=== PATIENT | male | born 1965 | race Caucasian/White ===

== ENCOUNTER 2018-11-01 08:15 | Day surgery (SDC) | payer BC, SELFPAY ==
[2018-11-01 08:29] VITALS: BP 152/99; PULSE 77; RESP 16; TEMP 36.1; O2SAT 96
[2018-11-01] MEDS: Lactated Ringers 1,000 ML 30 ML IV (08:47)
--- NOTE | 2018-11-01 10:32 | W.COLOREPORT ---
Date of service: 11/01/18 Time of Service: 10:32 Colonoscopy Report Date of procedure: 11/01/18 Pre-op diagnosis general: screening colonoscopy Post-op diagnosis procedure note: same Procedure: Colonoscopy Surgeon: Freddie Angelo III Anesthesia proc note operative: MAC Pathology: none sent Complications: None Disposition: PACU Indications: Colorectal screening Prep: GoLYTELY Findings: Patient had sporadic AVMs noted throughout the colon Procedure Description: After informed consent was obtained the patient was taken to the procedure room and placed in a left decubitous position. Monitors were applied and a time out was done. The patients name, date of , procedure, allergies to medications and metal in their body was reviewed. The patient was then sedated. Once sedated and comfortable a rectal exam was done. External exam was normal. Internal exam revealed a normal sphincter tone and no palpable masses. The prostate normal. The scope was then introduced and retrofelexed. 3 internal hemorrhoids were identified. The scope was then advanced to the cecum without difficulty. The TI and appendiceal orifice were identified. The prep was adequate. The scope was then slowly retracted over 6 minutes back into the rectum. No Polyps were removed. The scope was removed and the patient was woken up and taken back to Same day surgery in stable condition. The patient tolerated the procedure well and there were no immediate complications. Follow up: The patient should follow up in 10 years unless they develop changes in bowel habits or other new gastrointestinal complaints.
--- NOTE | 2018-11-01 10:34 | W.PM.DSUDISC ---
Discharge Plan Disposition Patient Disposition: HOME Condition: Stable Discharge Details Reason For Visit: Screening colonoscopy Attending Provider: Freddie Angelo III Primary Care Provider: Alex Richardson Home Meds and New Rx's Prescriptions: Continued bisacodyl [Dulcolax (bisacodyl)] 5 mg tablet,delayed release (DR/EC) 5 mg PO ONCE Qty: 4 RF: 0 polyethylene glycol 3350 17 gram/dose powder 255 g PO ONCE Qty: 255 RF: 0 amlodipine 5 MG tablet 5 mg PO DAILY Qty: 90 RF: 4 lisinopril 10 MG tablet 10 mg PO DAILY Qty: 90 RF: 4 Discharge Instructions Activity:: Activity as Tolerated Diet:: As Tolerated Discharge Orders Discharge Orders: Discharge Order (Routine); Ordered 11/01/18 Ordered By: Freddie Angelo III DS: Diagnosis Discharge Diagnosis (1) Colonoscopy planned: Status: Acute
[2018-11-01 11:05] VITALS: BP 122/79; PULSE 77; RESP 16; TEMP 35.5; O2SAT 96
== END 2018-11-01 11:30 | disposition home or self-care (01) ==
PROVIDERS: PCP Emergency Medicine; Visit Provider Surgery
PROC: 0DJD8ZZ Inspection of Lower Intestinal Tract, Via Natural or Artificial Opening Endoscopic (ICD-10-PCS; CPT 45378; principal; 2018-11-01 09:30)
DX: Z12.11 Encounter for screening for malignant neoplasm of colon (principal); K64.0 First degree hemorrhoids; I10 Essential (primary) hypertension
CPT/HCPCS: 45378

== ENCOUNTER 2020-05-19 11:25 | Emergency (ER) | payer BC, SELFPAY ==
[2020-05-19] VITALS (53 sets, daily range): BP systolic 107–152; BP diastolic 40–93; PULSE 65–100; RESP 12–26; TEMP 36.9; O2SAT 92–100
--- NOTE | 2020-05-19 11:30 | RT.EKG_ITS ---
APPROVED REPORT Exam: Resting ECG Patient Location: E HR:76 bpm ECG Measurements Heart Rate 76 AXIS NE [id number] P [id number] QRSd 93 QRS -19 QT 403 T -1 QTc 454 Conclusion P waves visible. May be artifact vs A flutter. No acute ST elevation or depression.
[2020-05-19] MEDS: Normal Saline 1,000 ML 1000 ML IV (11:53)
--- NOTE | 2020-05-19 12:01 | ED.GENADUL_ITS ---
Discharge Plan Disposition Patient Disposition: HOME Condition: Stable Discharge Details Chief Complaint: Allergic Clinical Impression: Syncope, Anaphylactic reaction to bee sting Primary Care Provider: Alex Richardson ED Provider: Jono Brian Home Meds and New Rx's Prescriptions: New prednisone 20 mg tablet 60 mg PO DAILY 5 Days Qty: 15 RF: 0 epinephrine [EpiPen 2-Brandin] 0.3 mg/0.3 mL auto-injector 0.3 mg IM ONCE Qty: 1 RF: 0 Continued lisinopril 10 mg tablet 10 mg PO DAILY Qty: 90 RF: 4 amlodipine 5 mg tablet 5 mg PO DAILY Qty: 90 RF: 4 Discharge Instructions Instructions: Insect Bite or Sting (ED), Syncope (ED) Additional Instructions: Prednisone as directed. [id number] Pepcid and Benadryl as directed for the next 5 days. I am prescribing you an EpiPen and we discussed how and when to use the EpiPen. Please watch for new or worsening symptoms and return to the ER for any concerns. I would like you to recheck your primary care provider later today or tomorrow for prompt outpatient reevaluation. Discharge Data Discharge Date/Time-TO BE ENTERED AT DEPARTURE: 05/19/20 15:45 Medical Decision Making 54-year-old gentleman with a history of hypertension, presents to the ER for what was described as anaphylactic reaction to a bee sting and a subsequent syncopal episode. Episode was witnessed, he did not fall to the ground or hurt himself. He has never had an adverse reaction to a bee sting in the past. He presents to the ER now having already received epinephrine, Benadryl, Solu- Medrol, IV fluids. I will add on IV Pepcid. Patient appears slightly anxious but otherwise in no acute distress. He does present with mild hypotension however per EMS this is significantly better than what they found upon initial presentation at his house. He currently has a localized bee sting but no other obvious signs or symptoms of anaphylactic reaction. His airway is patent, there is no swelling of his lips, tongue, throat. He is able to speak in full sentences and manage his secretions without difficulty. Lungs are clear to auscultation. There is no evidence of hives or other rash throughout his body. Given he had a syncopal episode, I do believe initiating a cardiac work-up is reasonable especially considering he needs to be watched in the ER for about 4 hours after receiving the epinephrine. Patient was observed in the ER for a total of over 4 hours. He remained on the cafeteria monitor. Blood pressure trended upward, 135/76. Heart rate of 83. He responded nicely to the medications that were provided. He was awake, alert, no longer anxious. Ambulated to the restroom multiple times without assistance and was able to tolerate p.o. intake. White blood cell count of 7.07 hemoglobin 13.7 hematocrit 39.5 platelet count 231. Sodium 142 potassium 3.0. Patient had his potassium replenished both p.o. and IV. Creatinine 1.19 with a GFR greater than 60. Glucose 125. Mag of 1.7. Initial troponin is less than 0.05. Serial reexaminations of the patient were performed during his observation here in the ER. Repeat EKG obtained at 1455 reviewed and interpreted with Dr. Ott. Please see her official report. Sinus rhythm, ventricular rate of 82. No STEMI. Repeat troponin less than 0.05. Patient, son, and I had a long conversation regarding his presentation today, his laboratory values here in the Er, and his multiple evaluations. He is currently asymptomatic. I will provide a prescription burst dose steroids and he will use [id number] Benadryl and Pepcid for the next 5 days. I will also prescribe an EpiPen, we discussed in length how and when to use an EpiPen and the importance of seeking medical attention if he has a reaction severe enough that requires an EpiPen. Patient has no additional questions or concerns and is comfortable with discharge at this time. He was encouraged to return to the ER for new or worsening symptoms, otherwise contact his primary care provider for outpatient reevaluation. Medical Records Medical records reviewed: Yes I reviewed the patient's medical records. Lab Data Lab results reviewed: Yes I reviewed the patient's lab results. Lab results narrative: Laboratory Tests Range/Units 05/19/20 05/19/20 05/19/20 11:50 11:50 14:55 WBC (4.4-10.8) 10^3/uL 7.07 RBC (4.36-5.78) 10^6/uL 4.49 Hgb (13.5-17.5) g/dL 13.7 Hct (40.0-50.0) % 39.5 L MCV (80-95) fL 88.0 MCH (27.0-33.0) pg 30.5 MCHC (32.0-36.0) % 34.7 RDW (11.8-14.1) % 12.7 Plt Count (130-400) 10^3/uL 231 MPV (8.0-11.0) fL 9.9 Immature Gran % 0.4 Neutrophils % 62.5 Lymphocytes % 32.7 Monocytes % 3.5 Eosinophils % 0.6 Basophils % 0.3 Absolute Neutrophils (1.2-6.7) 10^3/uL 4.42 Absolute Lymphocytes (1.2-3.4) 10^3/uL 2.31 Absolute Monocytes (0.1-0.8) 10^3/uL 0.25 Absolute Eosinophils (0.0-0.7) 10^3/uL 0.04 Absolute Basophils (0.0-0.2) 10^3/uL 0.02 Sodium (136-145) mmol/L 142 Potassium (3.5-5.1) mmol/L 3.0 L Chloride (98-107) mmol/L 107 Carbon Dioxide (21.0-32.0) mmol/L 24.7 Anion Gap (3-11) mmol/L 10.3 BUN (7-18) mg/dL 21 H Creatinine (0.70-1.30) mg/dL 1.19 Estimated GFR/1.73 m2 (mL/min/1.73m2) >= 60.00 Glucose (74-106) mg/dL 125 H Calcium (8.5-10.1) mg/dL 8.0 L Magnesium (1.8-2.4) mg/dL 1.7 L Total Bilirubin (0.2-1.0) mg/dL 0.4 AST (15-37) U/L 21 ALT (16-63) U/L 22 Alkaline Phosphatase (46-116) U/L 62 Troponin I (<0.06) ng/mL < 0.05 < 0.05 Total Protein (6.4-8.2) g/dL 5.9 L Albumin (3.4-5.0) g/dL 3.0 L ECG Data Attestation: I personally reviewed and interpreted this ECG (s) as follows: Interpretation: Initial EKG obtained at 1150, reviewed and interpreted with Dr. Ott. Please see her official report. Sinus rhythm, ventricular rate of 76. No STEMI HPI General Mode of arrival: ambulatory . Date/Time Provider Initiated Documentation: 05/19/20 11:44 . Limitations to Documentation: no limitations . Information obtained by: patient . HPI Narrative: This is a 54-year-old gentleman who reports a single bee sting to the right medial ankle. He went into his house, apparently became diaphoretic, felt nauseous, and had a witnessed syncopal episode at his kitchen counter. He did not fall to the ground or injure himself. He was noted to be hypotensive per EMS and was given IM epinephrine. Subsequently IV established, given IV fluid, Solu-Medrol, Benadryl. This occurred a short time prior to arrival here in the ER. He reports that he is already feeling much improved here in the ER. He never did experience any lip or tongue swelling, difficulty breathing. He denies headache, neck pain, visual changes, chest pain, shortness of breath, abdominal pain, vomiting, numbness, tingling, weakness. He has never had a reaction like this before. He was asymptomatic prior to the bee sting Related Data Home Medications Medication Instructions Recorded Confirmed lisinopril 10 mg tablet 10 mg PO DAILY #90 tab-cap 07/01/19 05/19/20 amlodipine 5 mg tablet 5 mg PO DAILY #90 tab-cap 01/17/20 05/19/20 epinephrine [EpiPen 2-Brandin] 0.3 mg IM ONCE #1 each 05/19/20 prednisone 60 mg PO DAILY 5 Days #15 tab 05/19/20 Previous Rx's Medication Instructions Recorded lisinopril 10 mg tablet 10 mg PO DAILY #90 tab-cap 07/01/19 amlodipine 5 mg tablet 5 mg PO DAILY #90 tab-cap 01/17/20 epinephrine [EpiPen 2-Brandin] 0.3 mg IM ONCE #1 each 05/19/20 prednisone 60 mg PO DAILY 5 Days #15 tab 05/19/20 Allergies Allergy/AdvReac Type Severity Reaction Status Date / Time bee venom protein (honey bee) Allergy Unverified 05/19/20 11:35 hornet venom Allergy Unverified 05/19/20 11:35 General Stated Complaint: Allergic CONRADO: 2 Review of Systems Constitutional Constitutional: Denies fatigue, Denies fever(s) and Denies weakness Eyes Eyes: Denies change in vision ENT Ears, Nose, Mouth, and Throat: Denies lip swelling, Denies sore throat, Denies throat swelling and Denies tongue swelling Cardiovascular Cardiovascular: Denies chest pain and Denies dyspnea Respiratory Respiratory: Denies cough, Denies dyspnea, Denies stridor and Denies wheezing Gastrointestinal Gastrointestinal: Denies abdominal pain, Reports nausea and Denies vomiting Musculoskeletal Musculoskeletal: Denies back pain, Denies numbness, Denies tingling and Reports other (Pain at the site of his sting) Integumentary/Breasts Skin/Breast: Denies rash Neurologic Neurologic: Denies numbness, Denies tingling and Denies weakness Endocrine Endocrine: Denies fatigue Allergic/Immunologic Allergic/Immunologic: Denies urticaria, Denies lip swelling, Denies throat swelling, Denies tongue swelling and Denies wheezing [facility] Medical History Normal colonoscopy (Resolved 11/01/18) Dr Freddie Angelo ([facility]), repeat 10 years Family History Mother Essential hypertension Father Personal history of malignant neoplasm PANCREATIC Sister No problems noted. Brother No problems noted. Grandfather No problems noted. Grandfather No problems noted. Grandmother Stroke Grandmother No problems noted. Social History Smoking/Tobacco Use Status: Never Alcohol Intake: current Alcohol Intake frequency: a few times a month Alcohol type: beer Drug use: Never Substance use type: does not use Do you feel safe at home: Yes Do you feel safe in your relationship?: Yes Exam Const General: cooperative, healthy appearing, comfortable, no acute distress and anxious Orientation: alert and awake [facility] Head: normal to inspection, normocephalic and atraumatic Mouth: moist mucous membranes Throat: posterior oropharynx normal Eyes General: appearance normal, both eyes and all related structures Alignment and Position: alignment normal Periorbital: periorbital findings normal Eyelids: eyelids normal Conjunctivae: conjunctivae normal Sclera: sclerae normal Cornea: corneas normal Pupils: PERRL EOM: EOM intact bilaterally Direct ophthalmoscopy: normal light reflex Neck Neck: normal visual inspection, full ROM, no meningeal signs, trachea midline, supple and nontender Resp Effort & Inspection: normal respiratory effort and able to speak in complete sentences Auscultation: clear to auscultation bilaterally Cardio Rate: regular rate Rhythm: regular rhythm GI Palpation: soft and nontender Back/Spine/Pelvis Back: No back tenderness Skin General skin exam: no rashes or lesions noted Neuro General: patient alert, patient awake, patient oriented x3, moves all extremities and no focal motor deficits Cranial Nerves: CN's II-XI intact bilaterally Cognition: normal cognition Speech: speech normal Gait: normal gait Motor: muscle tone normal throughout and strength 5/5 throughout Sensory Exam: no sensory deficits noted Extrem General: full ROM, capillary refill normal and no pedal edema Other: Right lower extremity medial ankle with a puncture wound, no obvious stinger visualized. There was minimal local erythema and discomfort with mild swelling. Neuro, vascular, tendon intact Psych Appearance: grossly normal Mental Status: mental status grossly normal Course Vital Signs Vital signs: Vital Signs Temperature 36.9 C 05/19/20 11:27 Pulse 78 05/19/20 11:27 Respiratory Rate 18 05/19/20 11:27 Blood Pressure 107/40 L 05/19/20 11:27 Pulse Oximetry 100 05/19/20 11:27 Temperature 36.9 C 05/19/20 11:27 Temperature Source Temporal Artery Scan 05/19/20 11:27 Pulse 78 05/19/20 11:27 Respiratory Rate 18 05/19/20 11:27 Respiratory Effort Non-Labored 05/19/20 11:38 Respiratory Pattern Normal 05/19/20 11:38 Blood Pressure 107/40 L 05/19/20 11:27 Blood Pressure Position Supine 05/19/20 11:27 Pulse Oximetry 100 05/19/20 11:27 Oxygen Delivery Method Room Air 05/19/20 11:27 Oxygen Flow Rate 0 05/19/20 11:27 Pain Level 3 05/19/20 11:27 Comment EPI 05/19/20 11:27
[2020-05-19 12:06] LABS: Abs Immature Grans 0.03 10^3/uL (0.0-0.06); Absolute Basophil Count 0.02 10^3/uL (0.0-0.2); Absolute Eosinophil Count 0.04 10^3/uL (0.0-0.7); Absolute Lymphocyte Count 2.31 10^3/uL (1.2-3.4); Absolute Monocyte Count 0.25 10^3/uL (0.1-0.8); Absolute Neutrophil Count 4.42 10^3/uL (1.2-6.7); Basophils % 0.3; Eosinophils % 0.6; HCT 39.5 % (40.0-50.0); HGB 13.7 g/dL (13.5-17.5); Immature Grans % 0.4; Lymphocytes % 32.7; MCH 30.5 pg (27.0-33.0); MCHC 34.7 % (32.0-36.0); MPV 9.9 fL (8.0-11.0); Monocytes % 3.5; Neutrophils % 62.5; Nucleated RBC 0 %; Platelet Count 231 10^3/uL (130-400); RBC 4.49 10^6/uL (4.36-5.78); RDW 12.7 % (11.8-14.1); WBC 7.07 10^3/uL (4.4-10.8)
--- NOTE | 2020-05-19 12:28 | DI.RAD_ITS ---
EXAM: XR CHEST 2V PA LATERAL CLINICAL HISTORY: Syncope status post bee sting TECHNIQUE: 2D digital imaging was performed. COMPARISON: No exams were available for comparison FINDINGS: The heart is not enlarged. The lungs are clear and well expanded. No pleural effusion seen. Mediastin al contours appear intact. IMPRESSION: Normal chest
[2020-05-19 12:29] LABS: ALT 22 U/L (16-63); AST 21 U/L (15-37); Alkaline Phosphatase 62 U/L (46-116); Anion Gap 10.3 mmol/L (3-11); BUN 21 mg/dL (7-18); Bilirubin, Total 0.4 mg/dL (0.2-1.0); CO2 24.7 mmol/L (21.0-32.0); CREATININE 1.19 mg/dL (0.70-1.30); Chloride 107 mmol/L (98-107); Glucose 125 mg/dL (74-106); Magnesium 1.7 mg/dL (1.8-2.4); Sodium 142 mmol/L (136-145); Total Protein 5.9 g/dL (6.4-8.2)
[2020-05-19 12:30] LABS: Troponin I < 0.05 ng/mL (<0.06)
[2020-05-19] MEDS: POTASSIUM CHLORIDE 10 MEQ/100 ML BAG 100 MEQ IVPB (13:04)
[2020-05-19] MEDS: Potassium Chloride 20 MEQ TABCR 40 MEQ PO (13:04)
--- NOTE | 2020-05-19 14:30 | RT.EKG_ITS ---
APPROVED REPORT Exam: Resting ECG Patient Location: E HR:82 bpm ECG Measurements Heart Rate 82 AXIS IA 171 P 25 QRSd 89 QRS -15 QT 361 T 21 QTc 422 Conclusion Sinus rhythm...normal P axis, V-rate 60- 99 Probable left atrial enlargement...P >50mS, <-0.10mV V1. No acute ST elevation or depression.
[2020-05-19 15:23] LABS: Troponin I < 0.05 ng/mL (<0.06)
== END 2020-05-19 15:45 | disposition home or self-care (01) ==
LOC: ER 13:08
PROVIDERS: Emergency Provider Physician Assistant; PCP Emergency Medicine
DX: T63.461A Toxic effect of venom of wasps, accidental (unintentional), initial encounter (principal); T78.2XXA Anaphylactic shock, unspecified, initial encounter; R55 Syncope and collapse; I95.9 Hypotension, unspecified; I10 Essential (primary) hypertension
CPT/HCPCS: 36415; 80053; 93005; 96361; 96365; 99284; 71046; 83735; 84484; 85025; 93010; 99285; J3480

== ENCOUNTER 2020-06-16 18:20 | Outpatient (REF) | payer BC, SELFPAY ==
[2020-06-17 02:16] LABS: Anion Gap 6.9 mmol/L (3-11); BUN 23 mg/dL (7-18); CO2 30.1 mmol/L (21.0-32.0); CREATININE 1.37 mg/dL (0.70-1.30); Chloride 103 mmol/L (98-107); Estimated GFR 53.95 (mL/min/1.73m2); Glucose 129 mg/dL (74-106); Sodium 140 mmol/L (136-145)
== END 2020-06-16 18:40 ==
LOC: LBN 18:20
PROVIDERS: PCP Emergency Medicine; Visit Provider Emergency Medicine
DX: I10 Essential (primary) hypertension (principal)
CPT/HCPCS: 80048

== ENCOUNTER 2020-07-02 01:04 | Outpatient (CLI) | payer BC, SELFPAY ==
[2020-07-02 12:44] LABS: Anion Gap 8.8 mmol/L (3-11); BUN 18 mg/dL (7-18); CO2 29.2 mmol/L (21.0-32.0); CREATININE 1.04 mg/dL (0.70-1.30); Calcium 8.9 mg/dL (8.5-10.1); Chloride 104 mmol/L (98-107); Glucose 136 mg/dL (74-106); Sodium 142 mmol/L (136-145)
[2020-07-02 13:40] LABS: Hemoglobin A1C 5.5 % (<5.7)
== END 2020-07-02 01:24 ==
PROVIDERS: PCP Emergency Medicine; Visit Provider Emergency Medicine
DX: E11.9 Type 2 diabetes mellitus without complications (principal); I10 Essential (primary) hypertension; R89.9 Unspecified abnormal finding in specimens from other organs, systems and tissues
CPT/HCPCS: 36415; 80048; 83036

== ENCOUNTER 2021-04-13 06:12 | Day surgery (SDC) | payer BC, SELFPAY ==
[2021-04-13] VITALS (10 sets, daily range): BP systolic 112–152; BP diastolic 69–98; PULSE 60–75; RESP 16–23; TEMP 36.2–36.7; O2SAT 92–98; BMI 28.3
--- NOTE | 2021-04-13 06:35 | W.ANESPRE ---
General Info Date of Service Date Performed: 04/13/21 Height: 5 ft 7 in Weight: 81.9 kg Body Mass Index (BMI): 28.3 Surgical Procedure: Operation Date: 04/13/21 07:55 Proposed Procedures Side Surgeon p Hernia Inguinal Laparoscopic Left Betsy Diamond MD Meds Allergies and Home Medications Allergies Allergy/AdvReac Type Severity Reaction Status Date / Time bee venom protein (honey bee) Allergy Verified 04/13/21 06:23 hornet venom Allergy Verified 04/13/21 06:23 lisinopril AdvReac Intermediate ? allergic Verified 04/13/21 06:23 reaction Home Medication Medication Instructions Recorded epinephrine [EpiPen 2-Brandin] 0.3 mg IM ONCE #1 each 05/19/20 amlodipine 5 mg PO HS 04/11/21 losartan 50 mg PO HS 04/11/21 Current Visit Medications: Current Medications Generic Name Dose Route Start Last Admin Trade Name Freq PRN Reason Stop Dose Admin Ringer's Solution 1,000 mls @ 80 mls/hr 04/13/21 06:00 IV 05/12/21 23:59 INFUSION KERI Cefazolin Sodium/Dextrose 2 gm in 50 mls @ 100 mls/hr 04/13/21 06:00 Ancef Duplex IVPB 05/12/21 23:59 PREOP KERI IV Miscellaneous Supplies 1 each 04/13/21 06:00 Iv Access IV 05/12/21 23:59 DIRECTED KERI Sodium Chloride 0 ml 04/13/21 06:00 Normal Saline Flush 10 Ml Syr IV 05/12/21 23:59 PRN PRN Sodium Chloride 0 ml 04/13/21 06:00 Normal Saline 10 Ml Vial IJ 05/12/21 23:59 DIRECTED PRN Sterile Water 0 ml 04/13/21 06:00 Water,Injection,Sterile 10 Ml Vial IJ 05/12/21 23:59 DIRECTED PRN PFSH Active Problems Active Problems: Problem Status Onset Code Elevated blood pressure reading R03.0 Rash R21 Bilateral inguinal hernia K40.20 Left inguinal hernia K40.90 Abnormal laboratory test R89.9 Medical History Medical History Essential hypertension (11/03/13) Hallux rigidus (11/25/14) right Hearing loss (06/03/12) History of hepatitis B virus infection (04/03/18) asymptomatic. cleared spontaneously. Hyperlipidemia (04/23/12) Kidney stone (09/21/17) Left inguinal hernia Normal colonoscopy (11/01/18) Dr Freddie Angelo ([facility]), repeat 10 years Visual disturbance (06/03/12) Surgical History Surgical History S/P colonoscopy (~11/01/18) Tobacco Smoking/Tobacco Use Status: Former Tobacco Use Passive smoking exposure: Yes Alcohol Alcohol Intake: current Alcohol intake frequency: a few times a week Alcohol type: beer Substance Use Substance use: Never Substance use type: does not use Vital Signs and Lab Results Vital Signs Most Recent Vital Signs in EMR: Most Recent Vital Signs Temp Pulse Resp BP Pulse Ox 36.7 C 75 16 152/98 H 96 04/13/21 06:25 04/13/21 06:25 04/13/21 06:25 04/13/21 06:25 04/13/21 06:25 Lab Results Blood Type / Crossmatch: No Data to Display Complete Blood Count: No Data to Display Complete Metabolic Panel: No Data to Display Liver Function Panel: No Data to Display Coagulation Panel: No Data to Display Cardiac Panel: No Data to Display Arterial Blood Gas: No Data to Display Venous Blood Gas: No Data to Display Pancreas Panel: No Data to Display Thyroid Panel: No Data to Display Infectious Disease: No Data to Display Blood Cultures: No Data to Display Toxicology Panel: No Data to Display Imaging and Studies Imaging and Studies EKG Summary: 07/20/19: Sinus rhythm...normal P axis, V-rate 60- 99 Probable left atrial enlargement...P >50mS, <-0.10mV V1. No acute ST elevation or depression. Anesthesia Assessment and Plan Anesthesia History Personal History: No History of Anesthesia Complications Family History: No Family History of Anesthesia Complications Exercise Tolerance Exercise Tolerance: Metabolic Equivalents>4 Pertinent Negatives Pertinent Negatives: No Symptoms of GERD, No Major Cardiovascular Symptoms or Complaints (HTN), No Major Pulmonary Symptoms or Complaints (+snores ), No History of CVA/TIA and Other (Hx of Hep B) Cardiac & Pulmonary Exam Cardiac Exam: Normal S1/S2 Heart Sounds Pulmonary Exam: Clear Bilateral Breath Sounds Airway Exam Known Difficult Airway: No Mallampati Class: 3 Mouth Opening: Normal (> 3cm) Thyromental Distance: Greater than 3 cm Facial Hair: Full Abbott Neck Range of Motion: Full ROM Neck Circumference: Normal Teeth Condition: Normal Dentition ASA Classification ASA Score: ASA 2 Emergency Case?: No NPO Status NPO Status: NPO Clears >2 hours, Solids >8 hours Anesthesia Plan Resuscitation Status: Full Code Anesthesia Technique: General Anesthesia Airway Planned: LMA Pain Management: Surgeon and patient request nerve block Monitors Used: Standard Monitors
--- NOTE | 2021-04-13 06:47 | HPE_ITS ---
Date of service: 04/13/21 Time of Service: 06:47 Assessment and Plan Assessment and plan (1) Bilateral inguinal hernia: Status: Acute Assessment and plan: Mr. Soliz is a pleasant 55-year-old gentleman who on examination today has bilateral inguinal hernias. The left one is definitely larger and I could see a bulge which I was able to reduce. The right side is quite small. Because of his active lifestyle I do recommend that we repair both laparoscopically at the same time. The surgery was discussed in detail with him. Risks, benefits and complications were reviewed with him. He was given a information on the surgery, and recovery. Risks, benefits and complications have been reviewed. Complications include but are not limited to bleeding, infection, injury to vas, vessels and nerves, in jury to bowel and adverse reaction to medications. Questions were entertained and answered to their satisfaction and they wished to proceed. COVID-19 testing explained to the patient. Reason for test reviewed. Quarantine per state requirements reviewed with patient. Patient understands and agrees to testing. Proceed with laparoscopic bilateral inguinal hernia repairs with mesh. Qualifiers: Obstruction and gangrene presence: without obstruction or gangrene Recurrence: non-recurrent Qualified Code(s): K40.20 - Bilateral inguinal hernia, without obstruction or gangrene, not specified as recurrent History of Present Illness Narrative: Mr. Soliz is a pleasant 55-year-old gentleman who is here today to discuss left inguinal hernia repair. He tells me that last summer he was doing something in the yard and felt a pop in the left inguinal area. In the fall he noticed a bulge. It is uncomfortable and once in a while he does have some pain especially with specific movements. He has continued to stay active. He runs and uses his bike. He denies any changes in bowel habits or urinary difficulties. He has no cardiac history aside from essential hypertension which is well controlled. He denies any chest pain or shortness of breath. He is quite active and is planning to run a half marathon the summer. No changes in his health since he was last seen. Review of Systems Cardiovascular Cardiovascular: Denies chest pain, Denies chest pain at rest, Denies irregular heart rhythm, Denies dyspnea and Denies dyspnea on exertion Respiratory Respiratory: Denies cough, Denies dyspnea and Denies dyspnea on exertion Gastrointestinal Gastrointestinal: Reports as per HPI Genitourinary Genitourinary: Denies dysuria, Denies urinary incontinence and Denies urinary urgency Endocrine Endocrine: Reports system reviewed and no additional complaints, except as documented Hematologic/Lymphatic Hematologic/Lymphatic: Denies easy bruising and Denies lymphadenopathy [facility] Medical History (Updated 04/13/21 @ 07:25 by Betsy Diamond MD) Essential hypertension (11/03/13) Hallux rigidus (11/25/14) right Hearing loss (06/03/12) History of COVID-19 History of hepatitis B virus infection (04/03/18) asymptomatic. cleared spontaneously. Hyperlipidemia (04/23/12) Kidney stone (09/21/17) Left inguinal hernia Normal colonoscopy (11/01/18) Dr Freddie Angelo ([facility]), repeat 10 years Real time reverse transcriptase PCR positive for COVID-19 virus December 2020 Visual disturbance (06/03/12) Surgical History S/P colonoscopy (~11/01/18) Family History Mother Essential hypertension Father , age 66 Pancreatic cancer Sister No problems noted. Brother No problems noted. Maternal Grandmother , age 65 Stroke Heart disease Son Hypertension Son No problems noted. Social History Smoking/Tobacco Use Status: Former Tobacco Use Quit Date: 10/15/95 Smoking risk assessment performed?: Yes Alcohol Intake: current Alcohol Intake frequency: a few times a week Alcohol type: beer Drug use: Never Substance use type: does not use Caregiver/Support person: No Household members: spouse Housing: house Communication Needs: None Do you need help understanding health information?: Never Pets and animals: Yes Pets and animals: dog(s) Sexually active: Yes Do you think of yourself as: straight/heterosexual Current gender identity: male What is your relationship status?: How often do you talk on the phone with friends or family?: twice per week How often do you get together with friends or relatives?: three or more times per week How often do you attend catholic or zoroastrian services?: 1-3 times per year Do you belong to any clubs or organized social groups?: yes Panel score (0-1 are the most socially isolated patients): 3 What type of physical activity do you participate in: bicycling, other Details: strength and running Duration: 45-60 minutes/day Frequency: 5-6 times per week Anna/Caodaism: None Special anna needs: No Seatbelt use: always Helmet use: Yes Helmet use: always Drive intox or ride w/intox lokie driver: No Do you feel safe at home: Yes Do you feel safe in your relationship?: Yes Meds Allergies and Home Medications Allergies Allergy/AdvReac Type Severity Reaction Status Date / Time bee venom protein (honey bee) Allergy Verified 04/13/21 06:23 hornet venom Allergy Verified 04/13/21 06:23 lisinopril AdvReac Intermediate ? allergic Verified 04/13/21 06:23 reaction Home Medications Medication Instructions Recorded Confirmed Type epinephrine [EpiPen 2-Brandin] 0.3 mg IM ONCE #1 each 05/19/20 04/11/21 Rx amlodipine 5 mg PO HS 04/11/21 04/13/21 History losartan 50 mg PO HS 04/11/21 04/13/21 History Exam Const General: healthy appearing and comfortable Orientation: alert and oriented x3 Resp Effort & Inspection: normal respiratory effort Auscultation: clear to auscultation bilaterally Cardio Rate: regular rate Rhythm: regular rhythm Heart Sounds: no click, no gallops and no murmurs GI Inspection: normal to inspection Palpation: soft, no hepatosplenomegaly, hernia (bilateral inguinal hernias) and nontender Results Last Vital Signs Temp 98.1 F 04/13/21 06:25 Pulse 75 04/13/21 06:25 Resp 16 04/13/21 06:25 BP 152/98 H 04/13/21 06:25 Pulse Ox 96 04/13/21 06:25
[2021-04-13] MEDS: Lactated Ringers 1,000 ML 80 ML IV (06:48)
--- NOTE | 2021-04-13 06:49 | W.PM.OP ---
Date of service: 04/13/21 Time of Service: 10:21 Operative Note Operative Note DATE OF PROCEDURE: 04/13/21 PRE-OP DIAGNOSIS: Bilateral inguinal hernias POST-OP DIAGNOSIS: same PROCEDURE: Laparoscopic bilateral inguinal hernia repair with mesh SURGEON: Betsy Diamond DISPLAY TRIMMER: Jill Macedo ANESTHESIA TYPE: General LMA/ETT (ASA 2/ Thom Blum, SAMMY) Refer to Anesthesia Record ESTIMATED BLOOD LOSS: 50 PATHOLOGY: none sent COMPLICATIONS: None Patient was transported to: PACU Patient's condition: stable Indications: Mr. Soliz is a pleasant 55-year-old gentleman who on examination today has bilateral inguinal hernias. The left one is definitely larger and I could see a bulge which I was able to reduce. The right side is quite small. Because of his active lifestyle I do recommend that we repair both laparoscopically at the same time. The surgery was discussed in detail with him. Risks, benefits and complications were reviewed with him. He was given a information on the surgery, and recovery. Risks, benefits and complications have been reviewed. Complications include but are not limited to bleeding, infection, injury to vas, vessels and nerves, injury to bowel and adverse reaction to medications. Questions were entertained and answered to their satisfaction and they wished to proceed. COVID-19 testing explained to the patient. Reason for test reviewed. Quarantine per state requirements reviewed with patient. Patient understands and agrees to testing. Proceed with laparoscopic bilateral inguinal hernia repairs with mesh. Findings: Large left inguinal hernia Moderate size right inguinal hernia Bilateral cord lipomas Procedure Description: After informed consent was obtained the patient was taken to the OR and placed in a supine position. He was then placed under general anesthesia and intubated. A timeout was done, and the patient's name, date of , allergies to medications, DVT prophylaxis, antibiotic given, the procedure were all reviewed. Fire risk was assessed. Next a Rosales catheter was placed in a standard sterile surgical fashion with difficulty due to a large prostate. We ended up having to place a 16 Fr caude rosales. The abdomen was clipped of hair. At this point the abdomen was prepped and draped in a sterile surgical fashion. Quarter percent bupivacaine was then injected just underneath the umbilicus. A 12 mm incision was made and dissection was taken down through the subcutaneous tissue to the fascia. The fascia was opened just to the right of midline. An S retractor was placed and the rectus muscle was then retracted. The muscle was lifted away from the peritoneum. The balloon dissector was then inserted all the way down to the pubic symphysis. The balloon was inflated until both inguinal areas were dissected. The balloon was removed and the preperitoneal space was insufflated. Once insufflated the camera was placed. 2 more ports were placed one just above the pubic symphysis which was 5 mm in size and another midway between the umbilicus and the pubic symphysis. This was also a 5 mm port. Next the right inguinal area was gently dissected making sure to pull the peritoneum down. The cord structures were identified. A large lipoma was identified on the cord structures. This was gently dissected away using a merilin dissector. There was a moderate hernia sac which was reduced away from the cord structures. Next I made sure that the peritoneum was down all the way up to the iliac crest. The pubic symphysis was also cleared for good visualization. Next the left inguinal area was gently dissected in the same way. First the peritoneum was brought down away from the cord structures and away from the pubic symphysis. The cord structures were identified and a sac was noted. The hernia sac again was gently dissected away from the cord structures and reduced. There was also a cord lipoma and this was dissected away from the cord with a merilin dissector. Once there was a good space created both on the right and left for the mesh, a 3D left mesh was placed into the peritoneum through the 12 mm port. It was secured at the lacunar ligament and just above the anterior superior iliac spine. There was good coverage medially. I made sure that the peritoneum was down below the mesh edge. Next the right 3D mesh was placed into the peritoneum. It was again secured at the lacunar ligament and just above the anterior superior iliac spine. There was good overlap at the pubic symphysis of both meshes. Again I made sure that the peritoneum and the hernia sac were below the edge of the mesh. At this point the 5 mm ports were removed. Lastly the camera was removed and the 12 mm port at the umbilicus. The fascia at the umbilicus was closed with a 0 Vicryl UR 6 figure of 8 suture. The skin of all 3 incisions were closed with 4-0 Vicryl. The skin was cleaned and dried and skin affix was applied. Sponge instrument needle counts were correct. At this point we made sure that his testicles were in the scrotum. The air in the scrotum was pushed out gently. The rosales was removed. The patient was woken up, extubated and he was taken to recovery in stable condition. There were no immediate complications.
--- NOTE | 2021-04-13 06:51 | PDOC.DSDIS_ITS ---
Discharge Plan Disposition Patient Disposition: HOME Condition: Good Discharge Details Reason For Visit: Bilateral inguinal hernia repairs with mesh Attending Provider: Betsy Diamond Primary Care Provider: Alex Richardson Home Meds and New Rx's Prescriptions: New oxycodone 5 mg tablet 5 mg PO Q6H PRNQty: 14 RF: 0 Continued epinephrine [EpiPen 2-Brandin] 0.3 mg/0.3 mL auto-injector 0.3 mg IM ONCE Qty: 1 RF: 0 losartan 50 mg tablet 50 mg PO HS RF: 0 amlodipine 5 mg tablet 5 mg PO HS RF: 0 Discharge Instructions Instructions: Laparoscopic Herniorrhaphy (DC) Additional Instructions: Activity at Home after surgery: 1. Make sure you walk outside at least 4 times per day 2. You should be able to climb a flight of stairs 3. No driving while in pain or taking pain medications 4. No strenuous activity or heavy lifting for 2 weeks (laparoscopic surgery) Diet, Nutrition, & wound healin. Avoid alcohol until after you are recovered from your surgery 2. Make sure to eat plenty of lean protein (meat, fish, eggs, cottage cheese, beans) 3. Eat a variety of fruits and vegetables. Eat plenty of high fiber foods to avoid constipation. 4. Drink plenty of liquids to stay hydrated and avoid constipation Pain Medications: 1. Tylenol 650mg every 6 hours as needed and Ibuprofen 600 mg every 6 hours as needed. You may alternate between the 2 medications every 3 hours 2. If a narcotic has been prescribed take as directed only for breakthrough pain For Constipation: 1. Take Milk of Magnesia or MiraLax as needed for constipation Other: 1. You may shower daily. Do not scrub the incisions 2. Do not soak the incisions for 1 week 3. You may alternate ice and heat as needed for pain and swelling 4. You will most likely have bruising in your lower abdomen, penis and scrotum. Wound Care: 1. Keep the incisions clean and dry Please call our office if you develop: 1. Fevers >101.5 2. Nausea or Vomiting 3. Worsening pain 4. Redness and thick discharge from the wounds 5. If you are unable to urinate for >8 hours please go to the emergency department If after hours please call the Hospital at and ask to speak to the on-call surgeon Referrals: Jill Macedo PA [[facility]] - 04/29/21 9:30 am Activity:: see above Shower/Bathe:: 24 hours Diet:: As Tolerated Discharge Orders Discharge Orders: Discharge Order (Routine); Ordered 04/13/21 Ordered By: Betsy Diamond DS: Diagnosis Discharge Diagnosis (1) Bilateral inguinal hernia: Status: Acute
[2021-04-13] MEDS: ceFAZolin 2 GM/50 ML BAG IVPB (08:06)
[2021-04-13] MEDS: Lidocaine 1% Multi-Dose 50 ML VIAL (10:00)
--- NOTE | 2021-04-13 11:27 | W.ANESPOSTOP ---
Postoperative Evaluation Date, Time and Location Date Performed: 04/13/21 Time Performed: 11:27 Patient Location: PACU Vital Signs Most Recent Imported Vital Signs: Most Recent Vital Signs Temp Pulse Resp BP Pulse Ox 36.3 C L 69 17 134/84 95 04/13/21 11:25 04/13/21 11:25 04/13/21 11:25 04/13/21 11:25 04/13/21 11:25 Pain Score Most Recent Pain Score: Most Recent Pain Score Pain Level 0 04/13/21 11:25 Assessment Mental Status: Awake (Alert & Oriented to Patient Baseline) Airway and Respiratory Function: Patent airway with normal (patient baseline) respiratory exam Cardiovascular Function: Hemodynamically Stable Hydration Status: Adequately Hydrated Nausea & Vomiting: No Nausea or Vomiting Pain: Pt. Denies Any Pain Peripheral Nerve Block: Patient did not receive a nerve block
== END 2021-04-13 13:23 | disposition home or self-care (01) ==
PROVIDERS: PCP Emergency Medicine; Visit Provider Surgery
PROC: (CPT 49650; principal; 2021-04-13 07:45)
DX: K40.20 Bilateral inguinal hernia, without obstruction or gangrene, not specified as recurrent (principal); I10 Essential (primary) hypertension
CPT/HCPCS: 49650; C1781; J0131; J0690; J1100; J1885; J2001; J2405; J2704

== ENCOUNTER 2021-06-24 02:10 | Outpatient (CLI) | payer BC, SELFPAY ==
[2021-06-24 12:27] LABS: Anion Gap 9.6 mmol/L (3-11); BUN 17 mg/dL (7-18); CO2 27.4 mmol/L (21.0-32.0); CREATININE 1.2 mg/dL (0.70-1.30); Calcium 8.9 mg/dL (8.5-10.1); Calculated LDL 139 mg/dL (<100); Chloride 103 mmol/L (98-107); Cholesterol 211 mg/dL (<200); Glucose 138 mg/dL (74-106); HDL Cholesterol 55 mg/dL (40-60); Potassium 3.6 mmol/L (3.5-5.1); Sodium 140 mmol/L (136-145); Triglyceride 89 mg/dL (<150)
[2021-06-24 12:31] LABS: Hemoglobin A1C 5.6 % (<5.7)
[2021-06-24 19:26] LABS: PSA, Screening 1.2 ng/mL (0.0-3.5)
== END 2021-06-24 02:11 | disposition home or self-care (01) ==
LOC: LOS 02:10
PROVIDERS: PCP Emergency Medicine; Visit Provider Emergency Medicine
DX: Z00.00 Encounter for general adult medical examination without abnormal findings (principal); I10 Essential (primary) hypertension; E11.9 Type 2 diabetes mellitus without complications; Z12.5 Encounter for screening for malignant neoplasm of prostate
CPT/HCPCS: 36415; 80048; 80061; 84153; 83036

== ENCOUNTER 2021-07-14 16:55 | Outpatient (REF) | payer BC, SELFPAY ==
[2021-07-14 18:56] LABS: BUN 19 mg/dL (7-18); CREATININE 1.1 mg/dL (0.70-1.30); Chloride 105 mmol/L (98-107); Glucose 150 mg/dL (74-106); Potassium 3.6 mmol/L (3.5-5.1); Sodium 143 mmol/L (136-145)
== END 2021-07-14 16:56 | disposition home or self-care (01) ==
LOC: LBN 16:55
PROVIDERS: PCP Emergency Medicine; Visit Provider Emergency Medicine
DX: I10 Essential (primary) hypertension (principal)
CPT/HCPCS: 80048

== ENCOUNTER 2021-09-14 02:30 | Outpatient (CLI) | payer BC, SELFPAY ==
[2021-09-14 11:43] LABS: Hemoglobin A1C 5.6 % (<5.7)
[2021-09-14 13:23] LABS: BUN 19 mg/dL (7-18); Chloride 103 mmol/L (98-107); Glucose 86 mg/dL (74-106); Potassium 3.8 mmol/L (3.5-5.1); Sodium 142 mmol/L (136-145)
== END 2021-09-14 02:31 | disposition home or self-care (01) ==
LOC: LBO 02:30
PROVIDERS: PCP Emergency Medicine; Visit Provider Emergency Medicine
DX: R73.9 Hyperglycemia, unspecified (principal)
CPT/HCPCS: 36415; 80048; 83036

== ENCOUNTER 2022-10-11 02:33 | Outpatient (CLI) | payer BC, SELFPAY ==
[2022-10-11 08:59] LABS: Anion Gap 5.6 mmol/L (3-11); BUN 20 mg/dL (7-18); CO2 32.4 mmol/L (21.0-32.0); CREATININE 1.2 mg/dL (0.70-1.30); Calcium 8.9 mg/dL (8.5-10.1); Chloride 104 mmol/L (98-107); Glucose 99 mg/dL (74-106); Potassium 3.5 mmol/L (3.5-5.1); Sodium 142 mmol/L (136-145)
[2022-10-12 10:43] LABS: Measles IgG Antibody Positive (See Note)
[2022-10-12 10:49] LABS: Rubella IgG Ab (UVM) Positive (See Note)
[2022-10-17 14:15] LABS: Index Value 0.09 (0.00-0.79); Mumps Ab, IgG Positive; Mumps Ab, IgM Negative (Negative)
== END 2022-10-11 02:34 | disposition home or self-care (01) ==
PROVIDERS: PCP Nurse Practitioner Family; Visit Provider Nurse Practitioner Family
DX: I10 Essential (primary) hypertension (principal); Z11.59 Encounter for screening for other viral diseases; Z71.85 Encounter for immunization safety counseling
CPT/HCPCS: 36415; 80048; 83735; 86735; 86762; 86765

== ENCOUNTER → 2023-10-19 01:02 | Outpatient (CLI) | payer BC, SELFPAY ==
--- NOTE | 2023-10-19 08:30 | DI.CT_ITS ---
Exam(s) CT PELVIC W EXAM: CT PELVIC W CLINICAL HISTORY: left inguinal hernia/inguinal cyst/see USR10.32 PAIN K40.20 E78.5 I10. TECHNIQUE: Imaging Protocol: Axial computed tomography images with coronal and sagittal reformatted images were created and reviewed. CONTRAST MATERIAL: Intravenous: Omnipaque 350 Contrast volume:structured data in ml Contrast route:I V - Oral: yes COMPARISON: CT RENAL COLIC WO CONTRAST from 06/10/2015 US US HERNIA from 10/01/2023 FINDINGS: Bladder: No gross wall thickening. No stones.No evidence of mass. Bowel: No obstruction or bowel wall thickening. Peritoneal cavity: No ascites, collection or mesenteric inflammatory response. Reproductive: Unremarkable. Bones: No acute findings. Degenerative disc changes Soft tissues: There is a left inguinal hernia containing the junction of the descending and sigmoid c olon as well as fat. The colon does not appear obstructed. It measures 5.8 cm in length by 3.5 cm t ransverse by 4 cm AP this hernia appears a larger when compared with the previous exam where it conta ins only fat. A 3 centimeter cystic is also seen at the inferior aspect of the hernia sac. It appea rs distant from the epididymis. Testicles appear normal in size. Small bilateral hydroceles present . Demand amount of fat extends into the right inguinal canal IMPRESSION: Left inguinal hernia containing the junction of the sigmoid and descending colon is well as fat. 3 c entimeters cyst is also noted at the inferior border of the hernia sac which could be related to the spermatic cord or perhaps mesenteric inclusion cyst. RADIATION DOSE DELIVERED: !Error Total DLP DATA REPOSITORY: All CT scans at this facility are submitted to the National Radiology Data Registry (NRDR) Dose Index Registry (DIR) with the [employer] (A[employer]). RADIATION OPTIMIZATION: All CT scans at this facility use at least one of these dose optimization te chniques: automated exposure control; mA and/or kV adjustment per patient size (includes targeted exa ms where dose is matched to clinical indication); or iterative reconstruction.
[2023-10-19] MEDS: Barium Sulfate 2% W/V-Creamy Vanilla Smoothie 450 ML BTL PO (13:14)
[2023-10-19 13:27] LABS: CREATININE 1.2 mg/dL (0.70-1.30); Estimated GFR 69.66 (mL/min/1.73m2)
[2023-10-19] MEDS: Omnipaque 350 MG/ML 100 ML BTL IJ (14:49)
[2023-10-19] MEDS: Normal Saline - Diluent 50 ML VIAL IJ (14:51)
== END ==
PROVIDERS: PCP Nurse Practitioner Family; Visit Provider Surgery
DX: R10.32 Left lower quadrant pain (principal); E78.5 Hyperlipidemia, unspecified; I10 Essential (primary) hypertension; K40.20 Bilateral inguinal hernia, without obstruction or gangrene, not specified as recurrent
CPT/HCPCS: 72193; 82565; J3490

== ENCOUNTER 2023-12-07 07:51 | Day surgery (SDC) | payer BC, SELFPAY ==
--- NOTE | 2023-12-06 16:30 | PDOC.DSDIS_ITS ---
Date of service: 12/07/23 Time of Service: 11:56 Discharge Plan Disposition Patient Disposition: Home Condition: Good Discharge Details Reason For Visit: Open left inguinal herniorrhaphy with mesh Attending Provider: Mohan Van Primary Care Provider: [place] Home Meds and New Rx's Prescriptions: New tramadol 50 mg tablet 50 mg PO Q8H PRNQty: 15 0RF Rx Instructions: Take 1 tablet by mouth up to every 8 hours if needed for severe pain. Continued epinephrine [EpiPen 2-Brandin] 0.3 mg/0.3 mL auto-injector 0.3 mg IM ONCE Qty: 1 0RF Rx Instructions: as a single dose hydrochlorothiazide 25 mg tablet See Rx Instructions .ROUTE .COMPLEX Qty: 90 3RF Dose Instruction: TAKE ONE TABLET BY MOUTH EVERY MORNING Rx Instructions: TAKE ONE TABLET BY MOUTH EVERY MORNING propranolol 60 mg capsule,extended release 24 hr 60 mg PO QHS Qty: 90 3RF amlodipine 10 mg tablet 10 mg PO HS losartan 100 mg tablet 100 mg PO HS Discharge Instructions Instructions: Inguinal Hernia (GEN) Additional Instructions: Pramod, we are able to figure curing the without much issue. You did have a small cystic mass at the end of the hernia sac that I excised and removed. This is the discrete lump that you were feeling. To the naked eye, does not seem to be anything worrisome. I will send it off for a pathologist to evaluate just to be safe. The technical parts of the repair went very smoothly, and I suspect you will make a full recovery without issue. Expect to have some pain over the incision site in the next few days. Like we talked about, using Tylenol and ibuprofen [id number] for the first 48 hours or so useful. I have also provided a prescription for some tramadol if it is the case that the Tylenol and ibuprofen are not sufficient. I would also expect some bruising around the incision, and may even extend down into the scrotum. This is common. Please let me know if the skin starts turning red, or if there is any discharge from the wound that seems concerning. I would like you to be up walking around a little bit each day. You should be feeling stronger day by day. Please keep your lifting to less than 10 pounds for the next 2 weeks. I looked forward to seeing you in the office on December 18. If you have any questions or concerns in the meantime, please do not hesitate to call at any point. 1. Resume all of your medications. 2. Use heating pads and ice packs over the incision to help with pain 3. Use [id number] Tylenol and ibuprofen to help with pain. They should be alternated every 6 hours for the first 48 hours, then used as needed. Use tramadol as needed for more severe pain. 4. Leave bandage in place for 24 hours, then remove. 5. Shower with warm soapy water. Pat dry. Use a bandaid if needed to protect your clothing. 6. No soaking or tub baths until I see you in the office. 7. No heavy lifting until I see you in the office. 8. Call the office (or go directly to the emergency room after hours) if you notice any of the following: Develop chills (warm to touch), or if you have a thermometer and your temperature is above 101 Difficulty breathing or difficultly swallowing Persistent vomiting Any bleeding ? exceeding one tablespoon 9. Call your physician if the site where your intravenous was started becomes red, swollen, painful, and warm to touch. Activity:: No heavy lifting Remove Dressings/Wound Care:: 24 hours Shower/Bathe:: 24 hours Diet:: As Tolerated DS: Diagnosis Discharge Diagnosis (1) Recurrent left inguinal hernia: Status: Acute Asessment and Plan: Status post left inguinal hernia repair with mesh. Postoperative office follow- up
--- NOTE | 2023-12-06 16:30 | W.PREOPHP ---
Assessment and Plan Assessment and plan (1) Recurrent left inguinal hernia: Status: Acute Assessment and plan: We reviewed the plan for open repair of his left inguinal hernia. I think he is a good understanding of the nature of the operation, he was able to provide consent for the procedure. We can proceed with inguinal hernia repair as planned. History of Present Illness History of Present Illness Chief Complaint: Pramod is a 58-year-old male with a recurrent left-sided inguinal hernia. Narrative: Johnny is 58 years old. He underwent a laparoscopic bilateral inguinal hernia repair in 2020. Unfortunately, he is experienced a recurrence of the left inguinal hernia. He is undergoing a CAT scan of the abdomen and pelvis that demonstrated a loop of bowel associated with this. His chief complaint regards to the bulge, and some discomfort in the area when he is up and about. 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 PFSH All Active Problems Recurrent left inguinal hernia (Acute) Cyst (Acute) inguinal region Left inguinal pain (Acute) Cerumen impaction (Acute) Post-nasal drip (Acute) Hypertension (Chronic) Vaccine counseling (Acute) Elevated blood sugar (Acute) Encounter for annual physical exam (Acute) Medical History COVID-19 Real time reverse transcriptase PCR positive for COVID-19 virus December 2020 History of COVID-19 Elevated blood pressure reading Rash Bilateral inguinal hernia Left inguinal hernia Abnormal laboratory test Normal colonoscopy (11/01/18) Dr Freddie Angelo ([facility]), repeat 10 years Visual disturbance (06/03/12) Kidney stone (09/21/17) Hyperlipidemia (04/23/12) History of hepatitis B virus infection (04/03/18) asymptomatic. cleared spontaneously. Hearing loss (06/03/12) Hallux rigidus (11/25/14) right Essential hypertension (11/03/13) Surgical History S/P colonoscopy (~11/01/18) Family History Mother Essential hypertension Father , age 66 Pancreatic cancer Sister No problems noted. Brother No problems noted. Maternal Grandmother , age 65 Stroke Heart disease Son Hypertension Son No problems noted. 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 Pets and animals: Yes Pets and animals: dog(s) and farm animals Sexually active: Yes Do you think of yourself as: straight/heterosexual Current gender identity: male What is your relationship status?: How often do you talk on the phone with friends or family?: twice per week How often do you get together with friends or relatives?: once per week How often do you attend jewish or rastafarian services?: 1-3 times per year Do you belong to any clubs or organized social groups?: no Panel score (0-1 are the most socially isolated patients): 2 What type of physical activity do you participate in: bicycling and running Duration: 30-45 minutes/day Frequency: 3-4 times per week Anna/Latter Day: Non episcopal Special anna needs: No (HPB) Agree to transfusion: No Seatbelt use: always Helmet use: Yes Helmet use: always Drive intox or ride w/intox 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 allergic Verified 12/07/23 08:48 reaction Home Medications Medication Instructions Recorded Confirmed Type epinephrine 0.3 mg/0.3 mL 0.3 mg (0.3 mL) IM ONCE #1 ea 02/23/23 12/07/23 Rx injection, auto-injector (EpiPen 2-Brandin) hydrochlorothiazide 25 mg tablet See Rx Instructions .Route 06/01/23 12/07/23 Rx .COMPLEX #90 tabs propranolol 60 mg capsule,24 60 mg PO QHS #90 caps 10/18/23 12/07/23 Rx hr,extended release amlodipine 10 mg tablet 10 mg PO HS 12/06/23 12/07/23 History losartan 100 mg tablet 100 mg PO HS 12/06/23 12/07/23 History Exam GI Other: His abdomen is soft and nondistended. He is got a semireducible left-sided inguinal hernia.
--- NOTE | 2023-12-06 16:36 | W.PM.OP ---
Date of service: 12/07/23 Time of Service: 12:06 Operative Note Operative Note DATE OF PROCEDURE: 12/07/23 PRE-OP DIAGNOSIS: Recurrent left inguinal hernia POST-OP DIAGNOSIS: same Left sided spermatic cord mass PROCEDURE: Open left inguinal herniorrhaphy with mesh SURGEON: Mohan Van [employer]ATIONAL [employer] TRUCK DRIVER: Jill Macedo Refer to Anesthesia Record ESTIMATED BLOOD LOSS: 25 PATHOLOGY: other (Left spermatic cord mass) COMPLICATIONS: None Patient was transported to: PACU Patient's condition: stable Implants: Bard PerFix light plug and patch Findings: Left-sided indirect inguinal hernia with spermatic cord mass Procedure Description: I began by confirming the correct site with the patient. Next, general anesthesia was established. The left inguinal region was blocked by the anesthesia team with real-time ultrasound guidance. The surgical site was then prepped and draped in the usual fashion. I began by making an oblique incision over the left inguinal region. I dissected down through the skin to the deep fascia. Next, I incised the fascia along the length of the inguinal canal to the external ring. I then carefully identified the ilioinguinal nerve and sharply divided it. Once this was complete, I bluntly dissected the shelving edge of the inguinal ligament down towards the pubic tubercle. Here, I encircled all cord structures with a [place]o drain. Next, I began dissecting the specific cord structures. Great care was taken to spare the vas deferens and the blood supply to the testicle. Holding the distal aspect of the hernia sac was a small cystic mass, it seemed distinct from the hernia sac itself. They did not communicate. Next, I isolated the hernia sac from the other inguinal structures. The cystic mass was mobilized as well. In order to obtain tissue diagnosis, I did divide the mass off of the end portion of the hernia sac. It was passed off the field labeled as the specimen. I then reduced the hernia sac back to its normal anatomic position. I then used a large mesh plug to obliterate the defect at the internal ring. I fixed in place with interrupted Prolene stitches. Next, I buttressed the posterior floor of the inguinal canal with a large mesh patch. I started by fixing it to the pubic tubercle. Next, I used Prolene sutures to affix it to the shelving edge of the inguinal ligament and the conjoined tendon. Laterally I tacked it to the internal oblique fascia and reconstructed an internal ring without any strain on the cord structures. Once this was complete, I irrigated the surgical field. It appeared hemostatic. I then closed the anterior portion of the fascia to reconstruct the front wall of the inguinal canal. I did this with interrupted Vicryl stitches. Once again, I irrigated the surgical field and inspected for hemostasis. Finally, I approximated the superficial fascia and the deep layers of the skin with absorbable suture. Skin was closed with running subcuticular stitches. Bandages were applied, the patient was awakened and transferred to the recovery unit.
[2023-12-07] VITALS (8 sets, daily range): BP systolic 106–159; BP diastolic 66–89; PULSE 51–67; RESP 13–16; TEMP 36.4–36.5; O2SAT 94–99; BMI 29.9
[2023-12-07] MEDS: Lactated Ringers 1,000 ML 80 ML IV (08:34)
[2023-12-07] MEDS: Gabapentin 300 MG CAP 600 MG PO (08:34)
[2023-12-07] MEDS: Acetaminophen 500 MG TAB 1000 MG PO (08:35)
[2023-12-07] MEDS: Celecoxib 200 MG CAP PO (08:35)
--- NOTE | 2023-12-07 09:50 | W.ANESPRE ---
General Info Date of Service Date Performed: 12/07/23 Height: 5 ft 6 in Weight: 84.1 kg Body Mass Index (BMI): 29.9 Surgical Procedure: Operation Date: 12/07/23 10:10 Proposed Procedure Side Surgeon p Herniorrhaphy Inguinal w/Mesh Left Mohan Van MD Meds Allergies and Home Medications Allergies Allergy/AdvReac Type Severity Reaction Status Date / Time bee venom protein (honey bee) Allergy Anaphylaxis Verified 12/07/23 08:48 hornet venom Allergy Anaphylaxis Verified 12/07/23 08:48 lisinopril AdvReac Intermediate ? allergic Verified 12/07/23 08:48 reaction Home Medication Medication Instructions Recorded epinephrine 0.3 mg/0.3 mL 0.3 mg (0.3 mL) IM ONCE #1 ea 02/23/23 injection, auto-injector (EpiPen 2-Brandin) hydrochlorothiazide 25 mg tablet See Rx Instructions .Route 06/01/23 .COMPLEX #90 tabs propranolol 60 mg capsule,24 60 mg PO QHS #90 caps 10/18/23 hr,extended release amlodipine 10 mg tablet 10 mg PO HS 12/06/23 losartan 100 mg tablet 100 mg PO HS 12/06/23 Current Visit Medications: Current Medications Generic Name Dose Route Start Last Admin Trade Name Freq PRN Reason Stop Dose Admin Acetaminophen 1,000 mg 12/07/23 06:00 12/07/23 08:35 Acetaminophen 500 Mg Tab PO 12/07/23 16:00 1,000 mg PREOP KERI Administration Celecoxib 200 mg 12/07/23 06:00 12/07/23 08:35 Celecoxib 200 Mg Cap PO 12/07/23 16:00 200 mg PREOP KERI Administration Gabapentin 600 mg 12/07/23 06:00 12/07/23 08:34 Gabapentin 300 Mg Cap PO 12/07/23 16:00 600 mg PREOP KERI Administration Hydromorphone HCl 2 mg 12/06/23 16:37 Hydromorphone 2 Mg Tab PO 01/05/24 16:36 Q4H PRN PRN Pain Ringer's Solution 1,000 mls @ 80 mls/hr 12/07/23 06:00 12/07/23 08:34 IV 01/05/24 23:59 80 mls/hr INFUSION KERI Administration Cefazolin Sodium/Dextrose 2 gm in 50 mls @ 100 mls/hr 12/07/23 06:00 Ancef Duplex IVPB 12/07/23 16:00 PREOP KERI IV Miscellaneous Supplies 1 each 12/07/23 06:00 Iv Access IV 01/05/24 23:59 DIRECTED KERI Sodium Chloride 0 ml 12/07/23 06:00 Normal Saline Flush 10 Ml Syr IV 01/05/24 23:59 PRN PRN Sodium Chloride 0 ml 12/07/23 06:00 Normal Saline 10 Ml Vial IJ 01/05/24 23:59 DIRECTED PRN Sterile Water 0 ml 12/07/23 06:00 Water,Injection,Sterile 10 Ml Vial IJ 01/05/24 23:59 DIRECTED PRN Tramadol HCl 100 mg 12/06/23 16:37 Tramadol 50 Mg Tab PO 01/05/24 16:36 Q6H PRN PRN Pain PFSH Active Problems Active Problems: Problem Status Onset Code Recurrent left inguinal hernia K40.91 Cyst Left inguinal pain R10.32 Cerumen impaction H61.20 Post-nasal drip R09.82 Hypertension I10 Vaccine counseling Z71.85 Elevated blood sugar R73.9 Encounter for annual physical exam Z00.00 Medical History Medical History COVID-19 Real time reverse transcriptase PCR positive for COVID-19 virus December 2020 History of COVID-19 Elevated blood pressure reading Rash Bilateral inguinal hernia Left inguinal hernia Abnormal laboratory test Normal colonoscopy (11/01/18) Dr Freddie Angelo ([facility]), repeat 10 years Visual disturbance (06/03/12) Kidney stone (09/21/17) Hyperlipidemia (04/23/12) History of hepatitis B virus infection (04/03/18) asymptomatic. cleared spontaneously. Hearing loss (06/03/12) Hallux rigidus (11/25/14) right Essential hypertension (11/03/13) Surgical History Surgical History S/P colonoscopy (~11/01/18) Tobacco Smoking/Tobacco Use Status: Never Smokeless tobacco user: chewing tobacco and snuff Passive smoking exposure: No Alcohol Alcohol Intake: current Alcohol intake frequency: a few times a week Alcohol type: beer Substance Use Substance use: Never Substance use type: does not use Vital Signs and Lab Results Vital Signs Most Recent Vital Signs in EMR: Most Recent Vital Signs Temp Pulse Resp BP Pulse Ox 36.5 C 67 16 159/89 H 96 12/07/23 08:27 12/07/23 08:27 12/07/23 08:27 12/07/23 08:27 12/07/23 08:27 Lab Results Blood Type / Crossmatch: No Data to Display Complete Blood Count: No Data to Display Complete Metabolic Panel: No Data to Display Liver Function Panel: No Data to Display Coagulation Panel: No Data to Display Cardiac Panel: No Data to Display Arterial Blood Gas: No Data to Display Venous Blood Gas: No Data to Display Pancreas Panel: No Data to Display Thyroid Panel: No Data to Display Infectious Disease: No Data to Display Blood Cultures: No Data to Display Toxicology Panel: No Data to Display Imaging and Studies Imaging and Studies Study information below may be from another EMR and interpreted by another provider. Please see original notes in EMR for more complete details. EKG Summary: 07/20/19: Sinus rhythm...normal P axis, V-rate 60- 99 Probable left atrial enlargement...P >50mS, <-0.10mV V1. No acute ST elevation or depression. Anesthesia Assessment and Plan Anesthesia History Personal History: No History of Anesthesia Complications Family History: No Family History of Anesthesia Complications Exercise Tolerance Exercise Tolerance: Metabolic Equivalents>4 Pertinent Negatives Pertinent Negatives: No Symptoms of GERD, No Major Cardiovascular Symptoms or Complaints, No Major Pulmonary Symptoms or Complaints and No History of CVA/TIA Cardiac & Pulmonary Exam Cardiac Exam: Normal S1/S2 Heart Sounds Pulmonary Exam: Clear Bilateral Breath Sounds Implantable Cardiac Device Does patient have a Pacemaker or an ICD?: No Airway Exam Known Difficult Airway: No Mallampati Class: 3 Mouth Opening: Normal (> 3cm) Thyromental Distance: Greater than 3 cm Facial Hair: Full Abbott Neck Range of Motion: Full ROM Neck Circumference: Normal Teeth Condition: Normal Dentition ASA Classification ASA Score: ASA 2 Emergency Case?: No NPO Status NPO Status: NPO Clears >2 hours, Solids >8 hours Anesthesia Plan Resuscitation Status: Full Code Anesthesia Technique: General Anesthesia Airway Planned: Endotracheal Tube Pain Management: Surgeon and patient request nerve block Monitors Used: Standard Monitors and Central Line
[2023-12-07] MEDS: ceFAZolin 2 GM/50 ML BAG IVPB (10:22)
--- NOTE | 2023-12-07 10:38 | W.ANESNERVE ---
Nerve Block Single Injection Procedure Date and Time Date Performed: 12/07/23 Procedure Start: 10:10 Location Where Procedure Performed Procedure Location: Operating Room Procedure Stop: 10:20 Reason Performed: Postoperative Analgesia Requesting Provider: Mohan Van Timeout Performed Timeout Performed: Yes Monitoring Used ECG, Blood Pressure, SpO2, ETCO2 and See EMR for corresponding vital signs Sterility Sterility: Hand Hygiene, Surgical Cap, Surgical Mask, Sterile Gloves and Chlorhexidine Sedation Given During Procedure Sedation Given (Indicate Dose Given): No Sedation given Patient Mental Status Patient Mental Status: Performed under general anesthesia Nerve Block 1st Nerve Block: Laterality: Left Block Type: TAP Unilateral Ultrasound Image Saved?: Yes Needle / Catheter Used: 100mm SonoPlex II Local Anesthetic Bolus (Indicate Dose Given): Injected in 3-5ml increments after negative blood aspiration and Bupivacaine 0.25% Dose:: 20mL Additives (Indicate Dose Given): Normal Saline (for hydrodissection ) Ultrasound: Sterile probe cover and gel used Nerve Stimulator: Not Used Paresthesia: None Procedure Tolerated: No Complications and Patient tolerated well Procedure Outcome: Successful Performed By: Roselyn Arguelles Supervised By: Thom Ivory
--- NOTE | 2023-12-07 11:15 | SPERMATO_PTH ---
PATIENT: Jose Soliz LOC: [facility] U#:[id number] AGE/SX: 58/M ROOM: RE12/07/[address]: Mohan Van MD : 1965 BED: DIS: 12/07/2023 SPEC #: [id number] RECD: 12/07/23 13:09 STATUS: [facility] #: [id number] ROX: 12/07/23 11:[address]: Mohan Van DEPT: Surgical Specimen RECD BY: Luiza Gibbons ENTERED: 12/07/23 13:09 SP TYPE: SPERMATO OTHR DR: [place] DNP Tissues: 1 - SPERMATOCELE Procedures: GROSS AND MICRO LEVEL 4 Comments: [id number]
[2023-12-07] MEDS: traMADol 50 MG TAB 100 MG PO (13:21)
--- NOTE | 2023-12-07 13:30 | W.ANESPOSTOP ---
Postoperative Evaluation Date, Time and Location Date Performed: 12/07/23 Time Performed: 13:30 Patient Location: Day Surgery Unit Vital Signs Most Recent Imported Vital Signs: Most Recent Vital Signs Temp Pulse Resp BP Pulse Ox 36.5 C 55 L 16 119/79 95 12/07/23 13:11 12/07/23 13:11 12/07/23 13:11 12/07/23 13:11 12/07/23 13:11 Pain Score Most Recent Pain Score: Most Recent Pain Score Pain Level 3 12/07/23 13:11 Assessment Mental Status: Awake (Alert & Oriented to Patient Baseline) Airway and Respiratory Function: Patent airway with normal (patient baseline) respiratory exam Cardiovascular Function: Hemodynamically Stable Hydration Status: Adequately Hydrated Nausea & Vomiting: No Nausea or Vomiting Pain: Pain is tolerable per patient Peripheral Nerve Block: Regional nerve block not resolved at time of post operative discharge
== END 2023-12-07 14:20 | disposition home or self-care (01) ==
LOC: SUR 07:52
PROVIDERS: PCP Nurse Practitioner Family; Visit Provider Surgery
PROC: (CPT 49520; principal; 2023-12-07 10:00)
DX: K40.91 Unilateral inguinal hernia, without obstruction or gangrene, recurrent (principal); N50.89 Other specified disorders of the male genital organs; I10 Essential (primary) hypertension
CPT/HCPCS: 49520; 55520; 76942; 88305; 88304; C1781; J0665; J0690; J1100; J2371; J2405; J2704

== ENCOUNTER 2025-04-27 03:02 | Outpatient (CLI) | payer OTHER, SELFPAY ==
[2025-04-27 09:01] LABS: Anion Gap 6.1 mmol/L (3-11); BUN 18 mg/dL (7-18); CO2 31.9 mmol/L (21.0-32.0); Calcium 9.0 mg/dL (8.5-10.1); Chloride 101 mmol/L (98-107); Estimated GFR 97.78 (mL/min/1.73m2); Glucose 95 mg/dL (74-106); Potassium 3.2 mmol/L (3.5-5.1); Sodium 139 mmol/L (136-145)
== END 2025-04-27 03:03 | disposition home or self-care (01) ==
LOC: LBO 03:02
PROVIDERS: PCP Nurse Practitioner Family; Visit Provider Nurse Practitioner Family
DX: I10 Essential (primary) hypertension (principal)
CPT/HCPCS: 36415; 80048